=== PATIENT | male | born 1975 | race Caucasian/White ===

== ENCOUNTER 2017-03-18 09:42 | Inpatient (IN) | payer OTHER ==
[~2017-03-18] VITALS: Ht 177.8 cm; Wt 92.2 kg
--- NOTE | ~2017-03-18 | ST ---
[place], [place] EXERCISE STRESS TEST REPORT NAME: CADEN OLSEN UNIT #: [id number] ROOM: 419 DOCTOR: SENA HICKS MD BIRTHDATE: [birth year] DOS: REFERRING PHYSICIAN: Dr. Castillo. INDICATION: Chest pain. The patient underwent standard protocol Lexiscan stress EKG. The patient's baseline EKG showed normal sinus rhythm at a heart rate 61 with blood pressure 152/90. The patient's peak heart rate was 102 with a blood pressure 154/104. The patient had no chest pain, no ischemic changes noted to arrhythmias were noted. SUMMARY OF FINDINGS: Unremarkable Lexiscan stress EKG. Please see separate report for perfusion scan results. SENA HICKS MD CM:STRESS:EXERCISE STRESS TEST REPORT [id number] SENA HICKS MD
[~2017-03-18 09:42] MED LIST: AMLODIPINE BES1 TA1 PO; AUGMENTIN 875875 MG PO; CIPRO XR500 MG PO; DOK COLACE100 MG PO; DOXYCYCLINE100 M3 PO; DOXYCYCLINE100 MG PO; FLAGYL500 MG PO; NORCO 5-325 TA1 EACH PO; NORVASC5 MG PO; PRILOSEC20 M1 PO
[2017-03-18 09:43] VITALS: BP 122/90
--- NOTE | 2017-03-18 09:50 | NUR ---
324MG OF BABY ASA ADMINISTERED BY AMBULANCE CREW. JOSE GEORGE
[2017-03-18 10:16] LABS: BASO % 0.5 % (0.0-1.0); EOS # 0.4 10*3/uL (0.0-0.4); EOS % 5.4 % (1.0-4.0); HEMATOCRIT 44.5 % (42.0-52.0); HEMOGLOBIN 15.2 g/dl (14.0-18.0); LYMPH # 2.2 10*3/uL (1.3-4.4); LYMPH % 28.9 % (27.0-41.0); MEAN CELL VOLUME 94.1 fl (80.0-94.0); MEAN CORPUSCULAR HGB 32.1 pg (27.0-31.0); MEAN CORPUSCULAR HGB CONC 34.2 g/dl (33.0-37.0); MEAN PLATELET VOLUME 8.9 fl (9.6-12.3); MONO # 0.5 10*3/uL (0.1-1.0); MONO % 6.3 % (3.0-9.0); NEUT # 4.4 10*3/uL (2.3-7.9); NEUT % 58.6 % (47.0-73.0); PLATELET COUNT AUTOMATED 229 10*3/uL (130-400); RED BLOOD COUNT 4.73 10*6/uL (4.50-5.90); RED CELL DISTRI WIDTH 13.5 % (0-14.5); WHITE BLOOD COUNT 7.4 10*3/uL (4.8-10.8)
[2017-03-18 10:33] LABS: ALBUMIN 3.7 gm/dl (3.1-4.5); ALKALINE PHOSPHATASE 71 U/L (45-117); BUN 11 mg/dl (7-24); CHLORIDE 110 mmol/L (98-107); CREATININE 0.75 mg/dL (0.70-1.30); LIPASE 236 U/L (73-393); POTASSIUM 4.1 mmol/L (3.5-5.1); SGOT/AST 17 IU/L (3-35); SGPT/ALT 21 U/L (12-78); SODIUM 141 mmol/L (136-145); TOTAL PROTEIN 7.2 gm/dL (6.4-8.2)
[2017-03-18 10:35] LABS: INTERNATIONAL NORM RATIO 1.1 (2.0-3.5)
[2017-03-18 10:41] LABS: TROPONIN I 0.076 ng/ml (<0.045)
[2017-03-18 11:07] VITALS: BP 141/95
--- NOTE | 2017-03-18 11:15 | NUR ---
A 41, admitted to 4E, under the services of SHONDA Meade DO with a diagnosis of CHEST PAIN WITH HIGH RISK FACTOR FOR CARDIAC ETIOLOGY. Chief complaint is CHEST AND BACK PAIN. Patient arrived via stretcher from ER. Monitor applied. Initial assessment completed. Vital signs taken and recorded. SHONDA MEADE DO notified of admission to the unit. Orders received. See assessment for past medical history, medications and allergies. Patient and/or family oriented to unit. [address] visitation policy reviewed. [facility] Rec verified and completed with patient and Dr. Manrique was notified. Clothing/patient valuable form completed, patient requested that his wallet that contained $12.00 in humphrey, 2 bank cards and 1 credit card remain in his room with him. 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 ARIES ALONSO
[2017-03-18] MEDS ORDERED: OSTEO BI-FLEX1 EACH PO (11:46)
[2017-03-18] MEDS ORDERED: CENTRUM SPECIA1 EACH PO (11:47)
[2017-03-18] MEDS ORDERED: ZYRTEC10 MG PO (11:48)
--- NOTE | 2017-03-18 13:15 | NUR ---
DR. HICKS'S OFFICE NOTIFIED OF CARDIOLOGY CONSULT.
--- NOTE | 2017-03-18 13:33 | NUR ---
DR. HICKS NOTIFIED OF ELEVATED TROPONIN LEVEL. SEE NEW ORDERS
--- NOTE | 2017-03-18 15:03 | NUR ---
IV DILAUDID GIVEN FOR PATIENT'S C/O CHEST AND BACK PAIN RATED 9/10. PAIN MED TOOK EFFECT IMMEDIATELY AND PATIENT RATED PAIN 5/10. WILL CONTINUE TO MONITOR.
--- NOTE | 2017-03-18 15:30 | NUR ---
PATIENT STILL RATES PAIN 5/10 AFTER DILAUDID.
[2017-03-18 16:00] VITALS: BP 142/88
--- NOTE | 2017-03-18 16:27 | NUR ---
MEDICATED PO NORCO FOR C/O CHEST AND BACK PAIN.
--- NOTE | 2017-03-18 16:52 | NUR ---
DR. COLON NOTIFIED OF ELEVATED TROPONIN LEVEL. NO NEW ORDERS.
--- NOTE | 2017-03-18 17:15 | NUR ---
NORCO SOMEWHAT EFFECTIVE. PATIENT RATES PAIN 5/10 BUT IT INCREASES WHEN HE AMBULATES, TURNS, COUGHS, OR SNEEZES.
--- NOTE | 2017-03-18 17:52 | NUR ---
DILAUDID GIVEN FOR PATIENT C/O CHEST AND BACK PAIN RATED 8/10. WILL MONITOR.
[2017-03-18 18:22] LABS: BILIRUBIN NEGATIVE (NEGATIVE); BLOOD TRACE-INTACT (NEGATIVE); CLARITY CLEAR (CLEAR); COLOR YELLOW (YELLOW); GLUCOSE NEGATIVE (NEGATIVE); KETONE NEGATIVE (NEGATIVE); LEUKO ESTERASE NEGATIVE (NEGATIVE); NITRITE NEGATIVE (NEGATIVE); PH 5.5 (5.0-9.0); UROBILINOGEN 0.2 E.U./dl (0.2-1.0)
--- NOTE | 2017-03-18 18:25 | NUR ---
DR. COLON NOTIFIED OF ELEVATED TROPONIN LEVELS. NO NEW ORDERS.
[2017-03-18 18:29] LABS: WBC 0-2 wbc/hpf (0-5)
[2017-03-18 18:30] LABS: URINE AMPHETAMINES < 1000 (1000ng/ml); URINE BARBITURATES < 200 (200ng/ml); URINE BENZODIAZEPINES < 200 (200ng/ml); URINE CANNABINOIDS (THC) < 50 (50ng/ml); URINE COCAINE < 300 (300ng/ml); URINE METHADONE < 300 (300ng/ml); URINE OPIATES > 300 (300ng/ml)
--- NOTE | 2017-03-18 18:30 | NUR ---
DILAUDID EFFECTIVE. PATIENT ASLEEP WITH RESPIRATIONS >12.
[2017-03-18 18:33] LABS: URINE PHENCYCLIDINE < 25 (25ng/ml)
[2017-03-18 20:00] VITALS: BP 145/86
--- NOTE | 2017-03-18 20:55 | NUR ---
PATIENT MEDICATED WITH PRN NORCO FOR PAIN RATIED 8/10 ON A 0/10 PAIN SCALE
--- NOTE | 2017-03-18 22:07 | NUR ---
PATIENT MEDICATED WITH PRN DILAUDID FOR C/O PAIN RATED 7/10 ON A 0/10 PAIN SCALE. STATES NORCO ISNT EFFECTIVE
[2017-03-19] VITALS: BP 132/85
--- NOTE | 2017-03-19 01:23 | NUR ---
24 HR chart check completed.
--- NOTE | 2017-03-19 02:38 | NUR ---
MEDICATED WITH PRN DILAUDID FOR C/O PAIN. WILL MONITOR
--- NOTE | 2017-03-19 03:58 | NUR ---
PATIENT STATES MEDICATION NOT EFFECTIVE. REQUESTING NORCO. PATIENT IS NPO AND WAS INFORMED ABOUT DILAUDID BEING AVAILABLE AT 0630
--- NOTE | 2017-03-19 05:15 | NUR ---
CLINICALS FAXED TO [facility]. SHE CALLED YESTERDAY AFTERNOON AND STATED [facility] SENT HIM HERE. SHE WILL REVIEW CLINICALS AND GET BACK TO ME ABOUT [facility] GOING TO [facility].
--- NOTE | 2017-03-19 06:30 | NUR ---
PATIENT MEDICATED WITH PRN DILAUDID FOR C/O PAIN RATED 7/10 ON A 0/10 PAIN SCALE
[2017-03-19 06:43] LABS: BASO % 0.4 % (0.0-1.0); EOS # 0.6 10*3/uL (0.0-0.4); EOS % 6.1 % (1.0-4.0); HEMATOCRIT 42.8 % (42.0-52.0); HEMOGLOBIN 14.3 g/dl (14.0-18.0); LYMPH # 2.5 10*3/uL (1.3-4.4); LYMPH % 24.5 % (27.0-41.0); MEAN CORPUSCULAR HGB 32.1 pg (27.0-31.0); MEAN CORPUSCULAR HGB CONC 33.4 g/dl (33.0-37.0); MEAN PLATELET VOLUME 9.4 fl (9.6-12.3); MONO # 0.7 10*3/uL (0.1-1.0); MONO % 6.3 % (3.0-9.0); NEUT # 6.4 10*3/uL (2.3-7.9); NEUT % 62.4 % (47.0-73.0); PLATELET COUNT AUTOMATED 212 10*3/uL (130-400); RED BLOOD COUNT 4.46 10*6/uL (4.50-5.90); RED CELL DISTRI WIDTH 13.7 % (0-14.5); WHITE BLOOD COUNT 10.3 10*3/uL (4.8-10.8)
[2017-03-19 07:10] LABS: ALBUMIN 3.5 gm/dl (3.1-4.5); ALKALINE PHOSPHATASE 67 U/L (45-117); BUN 11 mg/dl (7-24); CHLORIDE 108 mmol/L (98-107); CHOLESTEROL 169 mg/dL (<200); CREATININE 0.68 mg/dL (0.70-1.30); FREE T4 0.91 ng/dl (0.76-1.46); HDL CHOLESTEROL 35 mg/dl (40-60); LDL CHOLESTEROL 98 mg/dL (9-159); PHOSPHOROUS 3.8 mg/dL (2.5-4.9); POTASSIUM 3.9 mmol/L (3.5-5.1); SGOT/AST 14 IU/L (3-35); SGPT/ALT 20 U/L (12-78); SODIUM 140 mmol/L (136-145); TOTAL PROTEIN 6.6 gm/dL (6.4-8.2); TRIGLYCERIDES 178 mg/dl (<150); VLDL CHOLESTEROL 36 mg/dL (6-40)
[2017-03-19 07:13] LABS: INTERNATIONAL NORM RATIO 1.1 (2.0-3.5)
[2017-03-19 07:18] LABS: VITAMIN D, 25-HYDROXY 36.8 ng/mL (30-100)
--- NOTE | 2017-03-19 07:45 | NUR ---
[address] via . Returned to room, remains NPO. Ervin MADRID
[2017-03-19 08:00] VITALS: BP 130/70
--- NOTE | 2017-03-19 08:00 | NUR ---
Safety Physician in to talk to patient. Patient states lives at HOME with AND FAMILY. There are [address] in the home. [facility] services: NONE Patient's level of ADLs: INDEPENDENT Patient has working utilities: YES DME: [facility] NOT USING RIGHT PROSTHESIS FOR R AKA Follow-up physician's appointment after d/c: WILL BE MADE PRIOR TO DC Does patient want to access PORTAL?: Discharge plan HOME. GLORIA RENNER
--- NOTE | 2017-03-19 09:24 | NUR ---
PRESTON=ADOL GIVEN PER ORDER X1 FOR C/O HEADACHE. WILL CONTINUE TO MONITOR.
--- NOTE | 2017-03-19 09:48 | NUR ---
MOST 1000 AM MEDICATIONS HELD. PT NPO FOR STRESS TEST.
--- NOTE | 2017-03-19 10:30 | NUR ---
TORADOL HELPING PER PT.
--- NOTE | 2017-03-19 10:36 | NUR ---
SPOKE WITH [facility] AT [facility] AWARE PT WILL HAVE TRESS TEST AND IF NEGATIVE WILL DC. ASKS THAT I CALL HER IF PT NOT DC.
--- NOTE | 2017-03-19 10:43 | NUR ---
OFF FLOOR FOR STRESS TEST.
--- NOTE | 2017-03-19 11:45 | NUR ---
INFORMED CONSENT OBTAINED FOR LEXISCAN NUCLEAR STRESS TEST WITH DR. HICKS. RESTING EKG NSR WITH A RESTING HR OF 61 WITH BP OF 152/90. LUNGS CLEAR WITH SPO2 OF 98% ON ROOM AIR. PT COMPLETED A 1:00 LEXISCAN PROTOCOL RECEIVING LEXISCAN 0.4 MG IV OVER 10 SECONDS. HAD C/O "CHEST HEAVINESS," NAUSEA AND LIGHTHEADEDNESS THAT RESOLVED IN RECOVERY. HAD NO EKG CHANGES. HAD A PEAK HR OF 102 WITH BP OF 154/104. LAST RECOVERY HR OF 85 WITH BP OF 150/98. AWAITING SCANNING IN STABLE CONDITION.
--- NOTE | 2017-03-19 13:30 | NUR ---
DILAUDID GIVEN FOR C/O CHEST/BACK PAIN. RATES 7/10 ON PAIN SCALE. WILL MONITOR.
--- NOTE | 2017-03-19 14:35 | NUR ---
DILAUDID EFFECTIVE PER PT.
[2017-03-19 16:00] VITALS: BP 148/81
[2017-03-19] MEDS ORDERED: CEPHALEXIN250 MG PO (16:22)
[2017-03-19] MEDS ORDERED: COLCHICINE0.6 M1 PO (16:22)
[2017-03-19] MEDS ORDERED: MOTRIN 600 MG E4 TAB PO (16:22)
--- NOTE | 2017-03-19 17:38 | NUR ---
CCDIS Discharge instructions reviewed with patient/family. Patient receptive and verbalizes understanding. Follow-up care arranged. Written instructions given to patient/family. RUPERT RIVERA
== END 2017-03-19 17:38 | disposition home or self-care (01) | DRG 391 ==
LOC: ED 09:42 → EDHOLD 10:27 → 4E 10:27
PROVIDERS: Emergency Medicine; Hospitalist; ADMIT Internal Medicine
PROC: 3E073KZ Introduction of Other Diagnostic Substance into Coronary Artery, Percutaneous Approach (ICD-10-PCS; principal; 2017-03-19)
PROC: 4A02XM4 Measurement of Cardiac Total Activity, External Approach (ICD-10-PCS; principal; 2017-03-19)
DX: K21.9 Gastro-esophageal reflux disease without esophagitis (principal); G03.8 Meningitis due to other specified causes; E87.8 Other disorders of electrolyte and fluid balance, not elsewhere classified; E83.41 Hypermagnesemia; L03.115 Cellulitis of right lower limb; F41.9 Anxiety disorder, unspecified; I10 Essential (primary) hypertension; R74.8 Abnormal levels of other serum enzymes; F17.210 Nicotine dependence, cigarettes, uncomplicated; Z89.611 Acquired absence of right leg above knee; Z71.6 Tobacco abuse counseling; Z79.899 Other long term (current) drug therapy; Z88.8 Allergy status to other drugs, medicaments and biological substances; Z72.89 Other problems related to lifestyle; Z82.49 Family history of ischemic heart disease and other diseases of the circulatory system; Z83.79 Family history of other diseases of the digestive system; Z86.14 Personal history of Methicillin resistant Staphylococcus aureus infection; Z87.19 Personal history of other diseases of the digestive system; Z79.82 Long term (current) use of aspirin

== ENCOUNTER 2017-07-04 08:40 | Emergency (ER) | payer OTHER ==
[~2017-07-04] VITALS: Wt 99.8 kg
[~2017-07-04 08:40] MED LIST changes: +CENTRUM SPECIA1 EACH PO; +CEPHALEXIN250 MG PO; +COLCHICINE0.6 M1 PO; +MOTRIN 600 MG E4 TAB PO; +OSTEO BI-FLEX1 EACH PO; +ZYRTEC10 MG PO
[2017-07-04] MEDS ORDERED: ZANTAC 150150 MG PO (08:53)
[2017-07-04 09:53] LABS: BASO % 0.5 % (0.0-1.0); EOS # 0.3 10*3/uL (0.0-0.4); HEMATOCRIT 43.6 % (42.0-52.0); HEMOGLOBIN 14.7 g/dl (14.0-18.0); LYMPH # 2.1 10*3/uL (1.3-4.4); LYMPH % 25.4 % (27.0-41.0); MEAN CELL VOLUME 93.4 fl (80.0-94.0); MEAN CORPUSCULAR HGB 31.5 pg (27.0-31.0); MEAN CORPUSCULAR HGB CONC 33.7 g/dl (33.0-37.0); MONO # 0.6 10*3/uL (0.1-1.0); NEUT # 5.2 10*3/uL (2.3-7.9); NEUT % 62.5 % (47.0-73.0); PLATELET COUNT AUTOMATED 225 10*3/uL (130-400); RED BLOOD COUNT 4.67 10*6/uL (4.50-5.90); RED CELL DISTRI WIDTH 13.2 % (0-14.5); WHITE BLOOD COUNT 8.2 10*3/uL (4.8-10.8)
[2017-07-04 10:08] LABS: INTERNATIONAL NORM RATIO 1.1 (2.0-3.5)
[2017-07-04 10:13] LABS: ALBUMIN 3.9 gm/dl (3.1-4.5); ALKALINE PHOSPHATASE 70 U/L (45-117); BUN 9 mg/dl (7-24); CHLORIDE 108 mmol/L (98-107); CREATININE 0.86 mg/dL (0.70-1.30); POTASSIUM 3.9 mmol/L (3.5-5.1); SGOT/AST 15 IU/L (3-35); SGPT/ALT 23 U/L (12-78); SODIUM 140 mmol/L (136-145); TOTAL PROTEIN 7.3 gm/dL (6.4-8.2)
[2017-07-04 10:17] LABS: TROPONIN I 0.078 ng/ml (<0.045)
== END 2017-07-04 11:46 | disposition home or self-care (01) ==
LOC: ED 08:40
PROVIDERS: Student in an Organized Health Care Education/Training Program
DX: K64.9 Unspecified hemorrhoids (principal); K21.9 Gastro-esophageal reflux disease without esophagitis; I10 Essential (primary) hypertension; F17.210 Nicotine dependence, cigarettes, uncomplicated; Z88.8 Allergy status to other drugs, medicaments and biological substances; Z88.6 Allergy status to analgesic agent; Z79.899 Other long term (current) drug therapy

== ENCOUNTER 2018-04-08 18:53 | Inpatient (IN) | payer OTHER ==
[~2018-04-08] VITALS: Ht 177.8 cm; Wt 104.0 kg
--- NOTE | ~2018-04-08 | EKG ---
[place], [place] ELECTROCARDIOGRAM REPORT NAME: CADEN OLSEN UNIT #: [id number] ROOM: 504 DOCTOR: SHIRA DRAFT REPORT BIRTHDATE: [birth year] [facility] Test Date: 2018-04-09 Test Time: 12:27:48 Pat Name: CADEN OLSEN Department: Room: [facility] 2 Gender: M Engine Lathe Set Up Operator Tool: Farzana Kline : 1975 Requested By: TRE KEENAN Order Number: [id number] Reading MD: Jordan Hebert MD Measurements Intervals [place] Rate: 67 P: 38 [place]: 161 QRS: 4 QRSD: 97 T: 4 QT: 421 QTc: 445 Interpretive Statements Sinus rhythm Abnormal R-wave progression, early transition Compared to previous tracing, no significant change Electronically Signed On 04-09-2018 18:16:53 PST by Jordan Hebert MD CM:EKGRPT:ELECTROCARDIOGRAM REPORT [id number] 1816 TRE SILVA DRAFT REPORT TRE KEENAN
--- NOTE | ~2018-04-08 | EKG ---
[place], [place] ELECTROCARDIOGRAM REPORT NAME: CADEN OLSEN UNIT #: [id number] ROOM: 504 DOCTOR: SHIRA DRAFT REPORT BIRTHDATE: [birth year] [facility] Test Date: 2018-04-08 Test Time: 20:30:57 Pat Name: CADEN OLSEN Department: ER Room: 504 Gender: M Hydraulic Barker Operator: EKG.VT : 1975 Requested By: KAUSHIK VENTURA PA-C Order Number: [id number] Reading MD: Jordan Hebert MD Measurements Intervals [place] Rate: 95 P: 7 AL: 149 QRS: 14 QRSD: 102 T: 25 QT: 362 QTc: 455 Interpretive Statements Sinus rhythm Minimal ST elevation, anterior leads Baseline wander in lead(s) V1,V2 Electronically Signed On 04-09-2018 18:06:44 PST by Jordan Hebert MD CM:EKGRPT:ELECTROCARDIOGRAM REPORT 29 05 KAUSHIK VENTURA PA-C EPIPHANY DRAFT REPORT KAUSHIK VENTURA PA-C
[~2018-04-08 18:53] MED LIST changes: +ZANTAC 150150 MG PO
[2018-04-08 18:56] VITALS: BP 140/81
[2018-04-08 19:47] LABS: BASO % 0.3 % (0.0-1.0); EOS # 0.5 10*3/uL (0.0-0.4); EOS % 3.6 % (1.0-4.0); HEMATOCRIT 44.1 % (42.0-52.0); HEMOGLOBIN 15.2 g/dl (14.0-18.0); LYMPH # 1.9 10*3/uL (1.3-4.4); LYMPH % 15.7 % (27.0-41.0); MEAN CELL VOLUME 93.8 fl (80.0-94.0); MEAN CORPUSCULAR HGB 32.3 pg (27.0-31.0); MEAN CORPUSCULAR HGB CONC 34.5 g/dl (33.0-37.0); MEAN PLATELET VOLUME 9.2 fl (9.6-12.3); MONO # 0.9 10*3/uL (0.1-1.0); MONO % 7.5 % (3.0-9.0); NEUT # 8.9 10*3/uL (2.3-7.9); NEUT % 72.3 % (47.0-73.0); PLATELET COUNT AUTOMATED 232 10*3/uL (130-400); RED CELL DISTRI WIDTH 13.7 % (0-14.5); WHITE BLOOD COUNT 12.4 10*3/uL (4.8-10.8)
[2018-04-08 19:56] LABS: INTERNATIONAL NORM RATIO 1.1 (2.0-3.5)
[2018-04-08 20:05] LABS: ALBUMIN 3.8 gm/dl (3.1-4.5); ALKALINE PHOSPHATASE 78 U/L (45-117); BUN 11 mg/dl (7-24); CHLORIDE 105 mmol/L (98-107); CREATININE 0.99 mg/dL (0.70-1.30); LIPASE 195 U/L (73-393); POTASSIUM 3.9 mmol/L (3.5-5.1); SGOT/AST 18 IU/L (3-35); SGPT/ALT 22 U/L (12-78); SODIUM 137 mmol/L (136-145); TOTAL PROTEIN 7.4 gm/dL (6.4-8.2)
[2018-04-08 20:13] LABS: TROPONIN I 0.068 ng/ml (<0.045)
[2018-04-08 20:32] LABS: BILIRUBIN NEGATIVE (NEGATIVE); BLOOD TRACE-INTACT (NEGATIVE); CLARITY SL CLOUDY (CLEAR); COLOR YELLOW (YELLOW); GLUCOSE NEGATIVE (NEGATIVE); KETONE NEGATIVE (NEGATIVE); LEUKO ESTERASE NEGATIVE (NEGATIVE); NITRITE NEGATIVE (NEGATIVE); PH 5.5 (5.0-9.0); SPECIFIC GRAVITY 1.025 (1.005-1.030); UROBILINOGEN 0.2 E.U./dl (0.2-1.0)
[2018-04-08 20:45] LABS: BACTERIA 1+; EPITHELIAL CELLS 0-2; MUCOUS TRACE; RBC 0-2 rbc/hpf (0-2)
[2018-04-09 00:52] VITALS: BP 114/76
[2018-04-09 03:00] VITALS: BP 130/78; BP 130/79
[2018-04-09 06:43] LABS: BASO % 0.4 % (0.0-1.0); EOS # 0.5 10*3/uL (0.0-0.4); EOS % 4.8 % (1.0-4.0); HEMATOCRIT 39.1 % (42.0-52.0); LYMPH # 2.2 10*3/uL (1.3-4.4); LYMPH % 22.1 % (27.0-41.0); MEAN CELL VOLUME 96.1 fl (80.0-94.0); MEAN CORPUSCULAR HGB 31.7 pg (27.0-31.0); MEAN PLATELET VOLUME 9.2 fl (9.6-12.3); MONO % 9.6 % (3.0-9.0); NEUT # 6.3 10*3/uL (2.3-7.9); NEUT % 62.5 % (47.0-73.0); PLATELET COUNT AUTOMATED 189 10*3/uL (130-400); RED BLOOD COUNT 4.07 10*6/uL (4.50-5.90); WHITE BLOOD COUNT 10.1 10*3/uL (4.8-10.8)
[2018-04-09 06:44] LABS: HEMOGLOBIN 12.9 g/dl (14.0-18.0)
[2018-04-09 07:10] LABS: ALBUMIN 3.3 gm/dl (3.1-4.5); BUN 7 mg/dl (7-24); CHLORIDE 107 mmol/L (98-107); SODIUM 140 mmol/L (136-145)
[2018-04-09 07:20] LABS: ALKALINE PHOSPHATASE 63 U/L (45-117); CHOLESTEROL 142 mg/dL (<200); CREATININE 0.85 mg/dL (0.70-1.30); HDL CHOLESTEROL 36 mg/dl (40-60); LDL CHOLESTEROL 83 mg/dL (9-159); PHOSPHOROUS 2.9 mg/dL (2.5-4.9); SGOT/AST 12 IU/L (3-35); SGPT/ALT 17 U/L (12-78); TOTAL PROTEIN 6.4 gm/dL (6.4-8.2); TRIGLYCERIDES 113 mg/dl (<150); VLDL CHOLESTEROL 23 mg/dL (6-40)
[2018-04-09 08:34] VITALS: BP 134/79
[2018-04-09 12:20] VITALS: BP 125/68
[2018-04-09 12:50] LABS: BUN 7 mg/dl (7-24); CHLORIDE 107 mmol/L (98-107); CREATININE 0.78 mg/dL (0.70-1.30); POTASSIUM 3.9 mmol/L (3.5-5.1); SODIUM 141 mmol/L (136-145)
[2018-04-09 12:57] LABS: TROPONIN I 0.051 ng/ml (<0.045)
[2018-04-09 16:00] VITALS: BP 140/81
[2018-04-09 20:00] VITALS: BP 129/86
[2018-04-10] VITALS: BP 112/86
[2018-04-10 07:00] LABS: BASO % 0.4 % (0.0-1.0); EOS # 0.5 10*3/uL (0.0-0.4); EOS % 6.3 % (1.0-4.0); HEMATOCRIT 40.4 % (42.0-52.0); HEMOGLOBIN 12.9 g/dl (14.0-18.0); LYMPH # 1.9 10*3/uL (1.3-4.4); LYMPH % 25.8 % (27.0-41.0); MEAN CELL VOLUME 98.1 fl (80.0-94.0); MEAN CORPUSCULAR HGB 31.3 pg (27.0-31.0); MEAN CORPUSCULAR HGB CONC 31.9 g/dl (33.0-37.0); MEAN PLATELET VOLUME 9.3 fl (9.6-12.3); MONO # 0.6 10*3/uL (0.1-1.0); MONO % 8.5 % (3.0-9.0); NEUT # 4.3 10*3/uL (2.3-7.9); NEUT % 58.6 % (47.0-73.0); PLATELET COUNT AUTOMATED 203 10*3/uL (130-400); RED BLOOD COUNT 4.12 10*6/uL (4.50-5.90); RED CELL DISTRI WIDTH 13.7 % (0-14.5); WHITE BLOOD COUNT 7.3 10*3/uL (4.8-10.8)
[2018-04-10 07:36] LABS: BUN 6 mg/dl (7-24); CHLORIDE 106 mmol/L (98-107); CREATININE 0.77 mg/dL (0.70-1.30); POTASSIUM 4.3 mmol/L (3.5-5.1); SODIUM 142 mmol/L (136-145)
[2018-04-10 08:00] VITALS: BP 120/80
[2018-04-10 12:00] VITALS: BP 136/82
[2018-04-10 16:00] VITALS: BP 146/87
[2018-04-10 20:00] VITALS: BP 149/80
[2018-04-11] VITALS: BP 142/83
[2018-04-11 06:41] LABS: BASO % 0.5 % (0.0-1.0); EOS # 0.5 10*3/uL (0.0-0.4); EOS % 6.6 % (1.0-4.0); HEMATOCRIT 41.8 % (42.0-52.0); LYMPH # 1.4 10*3/uL (1.3-4.4); MEAN CORPUSCULAR HGB 31.7 pg (27.0-31.0); MEAN CORPUSCULAR HGB CONC 33.5 g/dl (33.0-37.0); MEAN PLATELET VOLUME 9.1 fl (9.6-12.3); MONO # 0.7 10*3/uL (0.1-1.0); MONO % 8.9 % (3.0-9.0); NEUT % 65.5 % (47.0-73.0); PLATELET COUNT AUTOMATED 228 10*3/uL (130-400); RED BLOOD COUNT 4.41 10*6/uL (4.50-5.90); RED CELL DISTRI WIDTH 13.4 % (0-14.5); WHITE BLOOD COUNT 7.7 10*3/uL (4.8-10.8)
[2018-04-11 06:44] LABS: MEAN CELL VOLUME 94.8 fl (80.0-94.0)
[2018-04-11 08:00] VITALS: BP 139/85
[2018-04-11] MEDS ORDERED: NORCO 5-325 TA1 EACH PO (08:11)
[2018-04-11] MEDS ORDERED: FLAGYL500 MG PO (08:11)
[2018-04-11] MEDS ORDERED: CIPRO250 MG PO (08:11)
== END 2018-04-11 10:45 | disposition home or self-care (01) | DRG 872 ==
LOC: ED 18:53 → 5E 04-09 01:23 → EDHOLD 04-09 01:23 → 5E 04-09 01:50
PROVIDERS: Internal Medicine; Physician Assistant; Student in an Organized Health Care Education/Training Program
DX: A41.9 Sepsis, unspecified organism (principal); K57.32 Diverticulitis of large intestine without perforation or abscess without bleeding; R65.20 Severe sepsis without septic shock; K80.20 Calculus of gallbladder without cholecystitis without obstruction; K40.90 Unilateral inguinal hernia, without obstruction or gangrene, not specified as recurrent; E66.09 Other obesity due to excess calories; F17.210 Nicotine dependence, cigarettes, uncomplicated; R73.9 Hyperglycemia, unspecified; K42.9 Umbilical hernia without obstruction or gangrene; E78.5 Hyperlipidemia, unspecified; K21.9 Gastro-esophageal reflux disease without esophagitis; I10 Essential (primary) hypertension; Z88.8 Allergy status to other drugs, medicaments and biological substances; Z89.511 Acquired absence of right leg below knee; Z86.14 Personal history of Methicillin resistant Staphylococcus aureus infection; Z82.49 Family history of ischemic heart disease and other diseases of the circulatory system; Z83.3 Family history of diabetes mellitus; Z83.79 Family history of other diseases of the digestive system; Z79.899 Other long term (current) drug therapy; Z71.6 Tobacco abuse counseling; Z68.32 Body mass index [BMI] 32.0-32.9, adult

== ENCOUNTER 2018-11-07 11:48 | Inpatient (IN) | payer OTHER ==
[2018-11-07] VITALS (9 sets, daily range): BP systolic 114–145; BP diastolic 57–97
[~2018-11-07] VITALS: Ht 177.8 cm; Wt 95.9 kg
--- NOTE | ~2018-11-07 | EKG ---
[place], [place] ELECTROCARDIOGRAM REPORT NAME: CADEN OLSEN UNIT #: [id number] ROOM: 415 DOCTOR: SHIRA DRAFT REPORT BIRTHDATE: [birth year] [facility] Test Date: 2018-11-07 Test Time: 17:21:52 Pat Name: CADEN OLSEN Department: Room: 415 Gender: M Credit Card Analyst: Sandra Abreu : 1975 Requested By: CATE CAMPUZANO Order Number: [id number] Reading MD: Carey Milian MD Measurements Intervals [place] Rate: 66 P: [place]: QRS: 6 QRSD: 97 T: 13 QT: 424 QTc: 445 Interpretive Statements Sinus rhythm Electronically Signed On 11-09-2018 11:40:18 PDT by Carey Milian MD CM:EKGRPT:ELECTROCARDIOGRAM REPORT 1721 1140 CATE SILVA DRAFT REPORT CATE CAMPUZANO MD
--- NOTE | ~2018-11-07 | EKG ---
[place], [place] ELECTROCARDIOGRAM REPORT NAME: CADEN OLSEN UNIT #: [id number] ROOM: 415 DOCTOR: SHIRA DRAFT REPORT BIRTHDATE: [birth year] [facility] Test Date: 2018-11-07 Test Time: 14:14:52 Pat Name: CADEN OLSEN Department: Room: 415 Gender: M Software Implementation Project Manager: Sandra Abreu : 1975 Requested By: CATE CAMPUZANO Order Number: [id number] Reading MD: Carey Milian MD Measurements Intervals [place] Rate: 71 P: 47 DC: 162 QRS: -6 QRSD: 91 T: -2 QT: 418 QTc: 455 Interpretive Statements Sinus rhythm Abnormal R-wave progression, early transition Left ventricular hypertrophy Nonspecific T abnormalities, inferior leads Artifact in lead(s) II,III,aVR,aVL,aVF,V1,V2 Compared to ECG 04/09/2018 12:27:48 Left ventricular hypertrophy now present T-wave abnormality now present Electronically Signed On 11-09-2018 11:39:43 PDT by Carey Milian MD CM:EKGRPT:ELECTROCARDIOGRAM REPORT [id number] 1139 CATE SILVA DRAFT REPORT CATE CAMPUZANO MD
--- NOTE | ~2018-11-07 | EKG ---
[place], [place] ELECTROCARDIOGRAM REPORT NAME: CADEN OLSEN UNIT #: [id number] ROOM: 415 DOCTOR: SHIRA DRAFT REPORT BIRTHDATE: [birth year] [facility] Test Date: 2018-11-07 Test Time: 11:54:52 Pat Name: CADEN OLSEN Department: Room: 415 Gender: M Replanting Machine Crewman: Sandra Abreu : 1975 Requested By: CATE CAMPUZANO Order Number: [id number] Reading MD: Carey Milian MD Measurements Intervals [place] Rate: 81 P: 4 [place]: 153 QRS: 6 QRSD: 93 T: 12 QT: 384 QTc: 446 Interpretive Statements Sinus rhythm Abnormal R-wave progression, early transition Borderline T abnormalities, inferior leads Artifact in lead(s) II,III,aVR,aVL,aVF Compared to ECG 04/09/2018 12:27:48 T-wave abnormality now present Electronically Signed On 11-09-2018 11:39:34 PDT by Carey Milian MD CM:EKGRPT:ELECTROCARDIOGRAM REPORT 1154 1139 CATE SILVA DRAFT REPORT CATE CAMPUZANO MD
[~2018-11-07 11:48] MED LIST changes: +CIPRO250 MG PO
[2018-11-07 12:13] LABS: BASO % 0.4 % (0.0-1.0); EOS # 0.4 10*3/uL (0.0-0.4); EOS % 4.2 % (1.0-4.0); HEMATOCRIT 45.6 % (42.0-52.0); HEMOGLOBIN 15.6 g/dl (14.0-18.0); LYMPH # 2.3 10*3/uL (1.3-4.4); LYMPH % 27.4 % (27.0-41.0); MEAN CELL VOLUME 95.8 fl (80.0-94.0); MEAN CORPUSCULAR HGB 32.8 pg (27.0-31.0); MEAN CORPUSCULAR HGB CONC 34.2 g/dl (33.0-37.0); MEAN PLATELET VOLUME 9.1 fl (9.6-12.3); MONO # 0.6 10*3/uL (0.1-1.0); MONO % 7.7 % (3.0-9.0); NEUT % 59.9 % (47.0-73.0); PLATELET COUNT AUTOMATED 238 10*3/uL (130-400); RED BLOOD COUNT 4.76 10*6/uL (4.50-5.90); RED CELL DISTRI WIDTH 13.2 % (0-14.5); WHITE BLOOD COUNT 8.4 10*3/uL (4.8-10.8)
[2018-11-07 12:26] LABS: ACT PARTIAL THROMBO TIME 27.3 SECONDS (20.0-32.1)
[2018-11-07 12:29] LABS: ALBUMIN 4.3 gm/dl (3.1-4.5); ALKALINE PHOSPHATASE 78 U/L (45-117); BUN 13 mg/dl (7-24); CHLORIDE 108 mmol/L (98-107); CREATININE 0.96 mg/dL (0.70-1.30); POTASSIUM 3.9 mmol/L (3.5-5.1); SGOT/AST 19 IU/L (3-35); SGPT/ALT 26 U/L (12-78); SODIUM 139 mmol/L (136-145); TOTAL PROTEIN 7.8 gm/dL (6.4-8.2)
--- NOTE | 2018-11-07 16:45 | NUR ---
A 43yr old male, admitted to ICCU, under the services of KASSANDRA Faulkner DO with a diagnosis of CHEST PAIN WITH MODERATE RISK FOR CARDIAC ETIOLOGY. Chief complaint is midsternal chest pain since Saturday. Had a stress test and echo at [facility] and discharged, pain worsened today and reports radiation to his neck. Patient arrived via stretcher from ER. Monitor applied. Initial assessment completed. Vital signs taken and recorded. See assessment for past medical history, medications and allergies. Patient and/or family oriented to unit. [facility] ICCU visitation policy reviewed. Clothing/patient valuable form completed. QUINTIN NICOLE L
[2018-11-07] MEDS ORDERED: DOXYCYCLINE100 MG PO (17:08)
[2018-11-07] MEDS ORDERED: IBU400 M1 PO (17:09)
--- NOTE | 2018-11-07 17:27 | NUR ---
MEDICATED WITH MORPHINE FOR PAIN ".
--- NOTE | 2018-11-07 18:20 | NUR ---
PAIN LEVEL A "5"/10 NOW. ENJOYING HIS DINNER. NO DYSRHYTHMIAS.
--- NOTE | 2018-11-07 18:25 | NUR ---
PT ABLE TO GIVE DOSES AND NAMES OF HIS MEDS.
--- NOTE | 2018-11-07 18:37 | NUR ---
DR VIVAR NOTIFIED OF TROPONIN OF 0.076 WHICH IS LOWER THAN THE LAST. DR VIVAR SAID HE SPOKE WITH DR HICKS EARLIER.
--- NOTE | 2018-11-07 18:50 | NUR ---
PT'S CALL LIGHT ON. "MY CHEST HURTS SINCE I ATE AND MY FAMILY HAS BEEN CALLING". NORCO BY MOUTH. "NOW CAN I HAVE THE MORPHINE EVERY 4 HOURS AND THE NORCO EVERY 4 HOURS?" "I'LL WANT THE MORPHINE CLOSER TO BEDTIME".
--- NOTE | 2018-11-07 20:00 | NUR ---
PT RESTING IN BED AWAKE, A&O, PLEASANT AND COOPERATIVE. RESP NONLABORED. NO ACUTE DISTRESS NOTED. PT STATES HE HAS A HEADACHE/NECK PAIN. PT STATES HE WOULD LIKE SOMETHING FOR PAIN, INFORMED PT THAT TO SOON FOR NORCO OR MORHINE BUT TYLENOL WAS AVAILABLE. PT STATES TYLENOL DOESN'T WORK FOR HIM SO HE'LL WAIT FOR THE NORCO OR MORPHINE. PT ALSO STATES THAT THE NORCO ISN'T WORKING FOR HIM LIKE IT NORMALLY DOES BECAUSE HE STILL HAS SOME SLIGHT CHEST DISCOMFORT.
--- NOTE | 2018-11-07 21:20 | NUR ---
MEDICATED WITH MORPHINE PER PRN ORDER FOR C/O PAIN.
--- NOTE | 2018-11-07 23:10 | NUR ---
MEDICATED WITH NORCO PER PRN ORDER FOR C/O PAIN.
[2018-11-08] VITALS (7 sets, daily range): BP systolic 119–135; BP diastolic 67–88
--- NOTE | 2018-11-08 01:30 | NUR ---
PT CALLED AND REQUESTING MORPHINE FOR C/O CHEST PAIN. PT STATES "I JSUT WANT TO STAY ASLEEP. I WAS HAVING SUCH A PLEASANT DREAM." ASKED PT ABOUT HIS CHEST PAIN AND HE SAID THAT IT'S PRESSURE AND FEELS LIKE AN ELEPHANT SITTING ON HIS CHEST. INFORMED PT THAT RECONCILIATION ANALYST MAY NEED TO BE CALLED AND THAT PT MAY NEED TO BE PLACED ON A NITRO GTT. PT STATES THAT THE CHEST PAIN IS MORE CONTAINTED AND IT'S THE HEADACHE AND PAIN IN THE BACK OF HIS NECK THAT IS MORE THE PROBLEM. MEDICATED WITH MORPHINE PER PT REQUEST. NO ACUTE DISTRESS OR DISCOMFORT NOTED. RESP NONLABORED. VSS.
--- NOTE | 2018-11-08 04:00 | NUR ---
MMORPHINE AND NORCO HAS BEEN EFFECTIVE FOR PAIN.
--- NOTE | 2018-11-08 05:30 | NUR ---
MEDICATED WITH MORPHINE PER PRN ORDER FOR C/O PAIN.
[2018-11-08 06:16] LABS: BASO # 0.1 10*3/uL (0.0-0.1); BASO % 0.8 % (0.0-1.0); EOS # 0.7 10*3/uL (0.0-0.4); EOS % 8.5 % (1.0-4.0); HEMATOCRIT 44.7 % (42.0-52.0); HEMOGLOBIN 14.8 g/dl (14.0-18.0); LYMPH # 3.8 10*3/uL (1.3-4.4); LYMPH % 43.7 % (27.0-41.0); MEAN CORPUSCULAR HGB 32.5 pg (27.0-31.0); MEAN CORPUSCULAR HGB CONC 33.1 g/dl (33.0-37.0); MEAN PLATELET VOLUME 9.4 fl (9.6-12.3); MONO # 0.6 10*3/uL (0.1-1.0); MONO % 7.2 % (3.0-9.0); NEUT # 3.5 10*3/uL (2.3-7.9); NEUT % 39.5 % (47.0-73.0); PLATELET COUNT AUTOMATED 221 10*3/uL (130-400); RED BLOOD COUNT 4.56 10*6/uL (4.50-5.90); RED CELL DISTRI WIDTH 13.2 % (0-14.5); WHITE BLOOD COUNT 8.8 10*3/uL (4.8-10.8)
[2018-11-08 06:47] LABS: BUN 16 mg/dl (7-24); CHLORIDE 107 mmol/L (98-107); CHOLESTEROL 176 mg/dL (<200); CREATININE 0.84 mg/dL (0.70-1.30); SODIUM 141 mmol/L (136-145); TRIGLYCERIDES 353 mg/dl (<150); VLDL CHOLESTEROL 71 mg/dL (6-40)
[2018-11-08 06:56] LABS: HDL CHOLESTEROL 28 mg/dl (40-60); LDL CHOLESTEROL 77 mg/dL (9-159)
--- NOTE | 2018-11-08 08:26 | NUR ---
ON ASSESSMENT PATIENT ALERT ORIENTED, ASKED FOR A "NORCO". WHEN QUESTIONED FURTHER,IT'S NOT CHEST PAIN, IT'S MY NECK "8"/10. ROOM AIR. ENJOYING HIS BREAKFAST. DR MARS HAS VISITED. PT HAS SIGNED RELEASE OF INFORMATION TO GET RECORDS FROM [facility] THAT WERE DONE EARLIER THIS WEEK. SEE ALL APPROPRIATE INTERVENTIONS.
--- NOTE | 2018-11-08 09:01 | NUR ---
PT WAS HEARD TALKING WITH RESIDENT SAYING "MY MORPHINE IS DUE AT 0930".
--- NOTE | 2018-11-08 09:27 | NUR ---
PT HAS CALLED ME TO THE ROOM."I'M READY FOR MY PAIN SHOT". ON QUESTIONING THE PAIN IS A "7"/10 IN HIS "HEAD".
--- NOTE | 2018-11-08 10:01 | NUR ---
MORPHINE WAS GIVEN AT 09 AND PT IS RESTING WATCHING TV, CLAIMS PAIN NOW A "4"/10
--- NOTE | 2018-11-08 10:45 | NUR ---
PT WAS UP TO BSC FOR SMALL FORMED BM. "MY HEAD IS POUNDING. I'LL BE READY FOR MY NORCO AT 11:30".
--- NOTE | 2018-11-08 11:29 | NUR ---
MEDICATED WITH NORCO FOR HEAD PAIN "ABOUT AN 8"10. "MY EYES ARE HURTING TOO. I'M NOT MAKING THIS STUFF UP, ARE MY EYES BLOODSHOT?"
--- NOTE | 2018-11-08 13:06 | NUR ---
DR TRAVIS MARS NOTIFIED THAT PT IS COMPLAINING OF PAIN "IN MY HEAD WITH PRESSURE BEHIND MY EYES", AND THAT HE IS ASKING IF HIS DOSE COULD BE INCREASED. EXPLAINED TO DR MARS THAT IT'S 30 MINUTES BEFORE PT'S Q4H PRN DOSE IS AVAILABLE. OKAY TO GIVE IT NOW. ICE BAG APPLIED TO PT'S NECK.
--- NOTE | 2018-11-08 13:12 | NUR ---
MORPHINE 2MG IV FOR C/O HEAD/NECK PAIN. DOOR CLOSED, LIGHTS DIMMED.
--- NOTE | 2018-11-08 13:45 | NUR ---
PT IS LYING QUIETLY IN BED WITH HIS EYES CLOSED AND HIS FACE RELAXED. HE'S TAKEN THE ICE BAG OFF OF HIS NECK. I DID NOT AWAKEN HIM TO ASK HIM HIS CURRENT PAIN LEVEL.
--- NOTE | 2018-11-08 15:51 | NUR ---
ALYSE FOR CONTINUED C/O PAIN IN HIS NECK. ICE BAG REFILLED. HE'S ORDERED HIS DINNER. DR HICKS HERE.
--- NOTE | 2018-11-08 16:27 | NUR ---
PT EATING HIS DINNER. NO DYSRHYTHMIAS. DR HICKS PLANS TO DO HEART CATH SATURDAY.
--- NOTE | 2018-11-08 16:56 | NUR ---
DR Kenyon MARS NOTIFIED THAT WHEN DR HICKS WAS HERE HE SAID THAT PT COULD BE MADE [facility] PATIENT. ORDER RECEIVED.
--- NOTE | 2018-11-08 16:57 | NUR ---
ALEXIS LENTZ NOTIFIED THAT PT NOW [facility] PT.
--- NOTE | 2018-11-08 17:18 | NUR ---
PT HAD HIS CALL LIGHT ON FOR ME TO EMPTY HIS BSC. HE SAID "I'M READY FOR MY SHOT OF MORPHINE. DID THEY INCREASE THE DOSE OR CHANGE IT TO DILAUDID?". NO CHANGE IN MED ORDERS HAVE BEEN RECEIVED. MORPHINE 2MG IV GIVEN FOR NECK/BACK PAIN "".
--- NOTE | 2018-11-08 18:04 | NUR ---
RESTING SINCE EARLIER MORPHINE.
--- NOTE | 2018-11-08 19:30 | NUR ---
MEDICATED WITH NORCO PER PT REQUEST FOR C/O HEAD/NECK PAIN.
--- NOTE | 2018-11-08 21:10 | NUR ---
PT TRANSFERRED TO ROOM 415 BED 2 FROM ICU. VITALS STABLE. PT ASSESSED. COMPLAINING OF BACK AND CHEST PAIN AT THIS TIME. WILL CONTINUE TO MONITOR.
--- NOTE | 2018-11-08 21:19 | NUR ---
PT COMPLAINING OF PAIN IN THE BACK OF HIS NECK AND IN HIS CHEST. ADMINISTERED PRN MORPHINE. WILL CONTINUE TO MONITOR THE PT AND REASSESS IN A HALF HOUR.
--- NOTE | 2018-11-08 21:45 | NUR ---
PT STILL COMPLAINING OF CHEST AND NECK PAIN. PTS VITALS STABLE. NO DIAPHORESIS NOTED. PT DENIES N/V. NOT DUE FOR NORCO FOR AN HOUR. PT AWARE. WILL CONTINUE TO MONITOR.
[2018-11-09] VITALS: BP 119/83
--- NOTE | 2018-11-09 02:09 | NUR ---
PATIENT MEDICATED WITH PRN MORPHINE ORDERED FOR C/O CHEST PAIN AND HEADACHE
[2018-11-09 06:11] LABS: BASO % 0.6 % (0.0-1.0); EOS # 0.6 10*3/uL (0.0-0.4); EOS % 8.8 % (1.0-4.0); HEMATOCRIT 45.3 % (42.0-52.0); HEMOGLOBIN 15.2 g/dl (14.0-18.0); LYMPH # 2.7 10*3/uL (1.3-4.4); LYMPH % 42.8 % (27.0-41.0); MEAN CORPUSCULAR HGB 32.5 pg (27.0-31.0); MEAN CORPUSCULAR HGB CONC 33.6 g/dl (33.0-37.0); MEAN PLATELET VOLUME 9.6 fl (9.6-12.3); MONO # 0.5 10*3/uL (0.1-1.0); MONO % 7.7 % (3.0-9.0); NEUT # 2.5 10*3/uL (2.3-7.9); NEUT % 39.8 % (47.0-73.0); PLATELET COUNT AUTOMATED 224 10*3/uL (130-400); RED BLOOD COUNT 4.67 10*6/uL (4.50-5.90); WHITE BLOOD COUNT 6.4 10*3/uL (4.8-10.8)
[2018-11-09 06:35] LABS: ALBUMIN 3.7 gm/dl (3.1-4.5); ALKALINE PHOSPHATASE 73 U/L (45-117); BUN 13 mg/dl (7-24); CHLORIDE 108 mmol/L (98-107); CREATININE 0.71 mg/dL (0.70-1.30); PHOSPHOROUS 3.5 mg/dL (2.5-4.9); POTASSIUM 4.1 mmol/L (3.5-5.1); SGOT/AST 21 IU/L (3-35); SGPT/ALT 26 U/L (12-78); SODIUM 140 mmol/L (136-145); TOTAL PROTEIN 6.8 gm/dL (6.4-8.2)
--- NOTE | 2018-11-09 08:30 | NUR ---
NORCO GIVEN FOR CP RATED 6/10. CALL LIGHT IN REACH. WILL MONITOR FOR EFFECTIVENESS.
--- NOTE | 2018-11-09 08:35 | NUR ---
PT C/O PERSISTENT CURIEL TO NECK AREA. STATES HE HAS NEVER HAD THIS TYPE OF CURIEL BEFORE. OFFERED TYLENOL, PT DECLINED.
--- NOTE | 2018-11-09 09:30 | NUR ---
PER PT, NORCO WAS "SOMEWHAT" EFFECTIVE. PT STATES THE PAIN NEVER GOES AWAY. PAIN RATED 4/10. WILL MONITOR. ALSO STATES TO BRING DILAUDID SOON HE CAN HAVE IT. SEE MAR.
--- NOTE | 2018-11-09 10:26 | NUR ---
ZOFRAN GIVEN FOR NAUSEA. PT STATES IT COMES AND GOES. WILL MONITOR. DOWN FOR CT AT THIS TIME.
--- NOTE | 2018-11-09 10:41 | NUR ---
BACK TO ROOM FOLLOWING CT.
--- NOTE | 2018-11-09 10:53 | NUR ---
DILAUDAD GIVEN FOR CHEST PAIN/NECK PAIN 10/13 AND 'ANNOYING". CALL LIGHT IN REACH WILL MONITOR. ZOFRAN WAS EFFECTIVE FOR EARLIER COMPLAINTS.
--- NOTE | 2018-11-09 11:25 | NUR ---
PT SLEEPING, NO SXS OF DISTRESS NOTED. CALL LIGHT IN REACH. DILAUDID SEEMS TO BE EFFECTIVE FOR COMPLAINTS.
[2018-11-09 12:00] VITALS: BP 142/78
--- NOTE | 2018-11-09 12:58 | NUR ---
PRN NORCO GIVEN FOR CHEST/NECK PAIN RATED 7/10. CALL LIGHT IN REACH. WILL MONITOR FOR EFFECTIVENESS.
--- NOTE | 2018-11-09 13:43 | NUR ---
PER PT, NORCO WAS NOT EFFECTIVE. PAIN RATED 5/10. CALL LIGHT IN REACH. STATES HE CAN "WAIT FOR THE DILAUDID WHENEVER IT IS DUE."
--- NOTE | 2018-11-09 14:57 | NUR ---
DILAUDID GIVEN FOR CHEST/NECK PAIN RATED 6/10. CALL LIGHT IN REACH. WILL MONITOR FOR EFFECTIVENESS.
--- NOTE | 2018-11-09 15:34 | NUR ---
PER , PT WILL BE TRANSFERRED IN THE AM FOR A HEART CATH AT [facility]
--- NOTE | 2018-11-09 15:42 | NUR ---
PER PT, DILAUDID WAS EFFECTIVE FOR PAIN, PAIN RATED 2/10. CALL LIGHT IN REACH. WILL CONTINUE TO MONITOR.
[2018-11-09 16:00] VITALS: BP 135/70
--- NOTE | 2018-11-09 16:49 | NUR ---
ON PHONE, IN NO OBVIOUS PAIN OR DISTRESS BUT REQUESTING NORCO FOR CHEST PAIN/NECK RATED 7/10. CALL LIGHT IN REACH. WILL MONTIOR FOR EFFECTIVENESS.
--- NOTE | 2018-11-09 17:49 | NUR ---
NOTIFIED THAT TRANSPORTATION FOR HEART CATH IN AM HAS BEEN DIFFICULT TO SET UP. ALL AMBULANCE'S THAT HAVE BEEN CALLED HAVE SAID THEY CANNOT TRANSPORT THE PT IN THE AM. SAID TO NOTIFY OF SITUATION. [facility] CALLED, MSG LEFT FOR . AWAITING CALL BACK.
--- NOTE | 2018-11-09 18:02 | NUR ---
[facility] WILL SEND THEIR MOBILE ICU TO GET THE PT FOR TOMORROW'S PROCEDURE. DR.ALEX MARS NOTIFIED. SAID HE WOULD PASS IT ON TO THE NIGHT TEAM.
--- NOTE | 2018-11-09 18:30 | NUR ---
CALLED BACK, INFORMED THAT THERE WAS A PROBLEM OBTAINING TRANSPORT FOR AM CATH AND THAT IT HAS BEEN RESOLVED. TRANSPORTATION SETUP AND WILL BE HERE FOR THE PT ARND [id number].
[2018-11-09 20:00] VITALS: BP 147/86
--- NOTE | 2018-11-09 20:18 | NUR ---
1950 RESTING IN BED WATCHING TV. HEP LOCK INTACT. NO DISTRSS NOTED.
--- NOTE | 2018-11-09 21:16 | NUR ---
2100 NORCO 1 PO GIVEN FOR C/O'S CONT CHEST PAIN. WILL MONITOR.
--- NOTE | 2018-11-09 22:05 | NUR ---
PER PT, NORCO WAS ONLY SL EFFECTIVE. AWAITING DILAUDID, WHICH PT WANTS AT 2300. CONDITION GUARDED.
--- NOTE | 2018-11-09 23:00 | NUR ---
DILAUDID 0.5MG IV GIVEN FOR CONT C/O'S MIDSTERNAL CHEST PAIN, RATES PAIN A "7". WILL CONT TO MONITOR.
[2018-11-10] VITALS: BP 146/78
[2018-11-10] MEDS ORDERED: ASPIRIN ADULT L81 M2 PO (00:21)
[2018-11-10] MEDS ORDERED: ATORVASTATIN CA80 M1 PO (00:21)
[2018-11-10] MEDS ORDERED: METOPROLOL SUCC25 M2 PO (00:21)
--- NOTE | 2018-11-10 01:29 | NUR ---
PT MEDICATED WITH PRN ORDER FOR IV ZOFRAN FOR COMPLAINTS OF NAUSEA AND HEART BURN. WILL MONITOR FOR EFEFCTIVENESS OF MEDICATION.
--- NOTE | 2018-11-10 03:47 | NUR ---
PT RESTING IN BED AT THIS TIME WITH NO OBVIOUS S/S OF PAIN OR DISCOMFORT. REPSIRATIONS EASY AND NONLABORED. BED LOCKED AND IN THE LOWEST POSITION, CALL LIGHT WITHIN REACH. WILL CONTINUE TO MONITOR PT.
--- NOTE | 2018-11-10 04:19 | NUR ---
0.5 IV DILAUDED ADMINISTERED ORDERED FOR COMPLAINTS OF CHEST PAIN HE RATES A 5/10. WILL MONITOR FOR EFFECTIVENESS OF MEDICATION.
--- NOTE | 2018-11-10 06:27 | NUR ---
REPORT CALLED TO [facility] COMMERCIAL BAKING TEACHER RN. SHE IS REQUESTING TO BE FAXED THE CONSULT FROM DR. HICKS.
[2018-11-10 06:46] LABS: BASO % 0.4 % (0.0-1.0); EOS # 0.6 10*3/uL (0.0-0.4); EOS % 8.5 % (1.0-4.0); HEMATOCRIT 46.4 % (42.0-52.0); HEMOGLOBIN 15.2 g/dl (14.0-18.0); LYMPH # 2.4 10*3/uL (1.3-4.4); LYMPH % 34.6 % (27.0-41.0); MEAN CELL VOLUME 97.1 fl (80.0-94.0); MEAN CORPUSCULAR HGB 31.8 pg (27.0-31.0); MEAN CORPUSCULAR HGB CONC 32.8 g/dl (33.0-37.0); MEAN PLATELET VOLUME 9.3 fl (9.6-12.3); MONO # 0.6 10*3/uL (0.1-1.0); MONO % 8.8 % (3.0-9.0); NEUT # 3.3 10*3/uL (2.3-7.9); NEUT % 47.4 % (47.0-73.0); PLATELET COUNT AUTOMATED 214 10*3/uL (130-400); RED BLOOD COUNT 4.78 10*6/uL (4.50-5.90); RED CELL DISTRI WIDTH 12.9 % (0-14.5); WHITE BLOOD COUNT 6.9 10*3/uL (4.8-10.8)
[2018-11-10 06:56] LABS: ALBUMIN 3.8 gm/dl (3.1-4.5); ALKALINE PHOSPHATASE 70 U/L (45-117); BUN 10 mg/dl (7-24); CHLORIDE 108 mmol/L (98-107); CREATININE 0.74 mg/dL (0.70-1.30); PHOSPHOROUS 3.9 mg/dL (2.5-4.9); POTASSIUM 4.2 mmol/L (3.5-5.1); SGOT/AST 37 IU/L (3-35); SGPT/ALT 39 U/L (12-78); SODIUM 140 mmol/L (136-145)
--- NOTE | 2018-11-10 08:08 | NUR ---
PATIENT DISCHARGED TO GO TO [facility] BY THEIR MOBILE UNIT.
--- NOTE | 2018-11-10 14:28 | NUR ---
case norrissilvia called [facility] regarding patient being admitted on 11/07 and was transferred this am, spoke to Kaylen, patient's information given to Kaylen
== END 2018-11-10 08:08 | disposition other institution (70) | DRG 282 ==
LOC: ED 11:48 → EDHOLD 15:47 → 4E 15:47 → 5E 15:56 → ICCU 16:46 → 4E 11-08 21:02
PROVIDERS: Emergency Medicine; Hospitalist; Internal Medicine; ADMIT Family Medicine
DX: I21.4 Non-ST elevation (NSTEMI) myocardial infarction (principal); D53.1 Other megaloblastic anemias, not elsewhere classified; E78.5 Hyperlipidemia, unspecified; B36.0 Pityriasis versicolor; R51 Headache; R55 Syncope and collapse; K57.90 Diverticulosis of intestine, part unspecified, without perforation or abscess without bleeding; M54.2 Cervicalgia; K21.9 Gastro-esophageal reflux disease without esophagitis; E66.9 Obesity, unspecified; I11.9 Hypertensive heart disease without heart failure; F41.9 Anxiety disorder, unspecified; F32.9 Major depressive disorder, single episode, unspecified; R79.89 Other specified abnormal findings of blood chemistry; F17.210 Nicotine dependence, cigarettes, uncomplicated; E87.8 Other disorders of electrolyte and fluid balance, not elsewhere classified; Z89.611 Acquired absence of right leg above knee; Z88.8 Allergy status to other drugs, medicaments and biological substances; Z86.14 Personal history of Methicillin resistant Staphylococcus aureus infection; Z82.49 Family history of ischemic heart disease and other diseases of the circulatory system; Z83.79 Family history of other diseases of the digestive system; Z79.899 Other long term (current) drug therapy; Z68.30 Body mass index [BMI] 30.0-30.9, adult

== ENCOUNTER 2018-11-27 10:02 | Emergency (ER) | payer OTHER ==
[~2018-11-27] VITALS: Ht 177.8 cm; Wt 104.3 kg
--- NOTE | ~2018-11-27 | EKG ---
[place], [place] ELECTROCARDIOGRAM REPORT NAME: CADEN OLSEN UNIT #: [id number] ROOM: DOCTOR: EPIPHANY DRAFT REPORT BIRTHDATE: [birth year] [facility] Test Date: 2018-11-27 Test Time: 10:25:11 Pat Name: CADEN OLSEN Department: Room: Gender: Perinatal Nurse: : 1975 Requested By: PAIGE KEMP DNP Order Number: [id number] Reading MD: Laine Ray Measurements Intervals [place] Rate: 75 P: -4 SD: 159 QRS: -2 QRSD: 98 T: 2 QT: 395 QTc: 442 Interpretive Statements Sinus rhythm Abnormal R-wave progression, early transition Compared to ECG 11/07/2018 17:21:52 No significant changes Electronically Signed On 11-28-2018 12:24:27 PDT by Laine Ray CM:EKGRPT:ELECTROCARDIOGRAM REPORT 1025 1224 PAIGE KEMP DNP EPIPHANY DRAFT REPORT PAIGE KEMP DNP
[~2018-11-27 10:02] MED LIST changes: +ASPIRIN ADULT L81 M2 PO; +ATORVASTATIN CA80 M1 PO; +IBU400 M1 PO; +METOPROLOL SUCC25 M2 PO
[2018-11-27 10:48] LABS: BASO % 0.3 % (0.0-1.0); EOS # 0.4 10*3/uL (0.0-0.4); HEMATOCRIT 46.2 % (42.0-52.0); HEMOGLOBIN 15.5 g/dl (14.0-18.0); LYMPH # 2.1 10*3/uL (1.3-4.4); LYMPH % 24.6 % (27.0-41.0); MEAN CELL VOLUME 96.7 fl (80.0-94.0); MEAN CORPUSCULAR HGB 32.4 pg (27.0-31.0); MEAN CORPUSCULAR HGB CONC 33.5 g/dl (33.0-37.0); MONO # 0.6 10*3/uL (0.1-1.0); MONO % 6.6 % (3.0-9.0); NEUT # 5.4 10*3/uL (2.3-7.9); PLATELET COUNT AUTOMATED 234 10*3/uL (130-400); RED BLOOD COUNT 4.78 10*6/uL (4.50-5.90); RED CELL DISTRI WIDTH 12.8 % (0-14.5); WHITE BLOOD COUNT 8.6 10*3/uL (4.8-10.8)
[2018-11-27 10:58] LABS: ACT PARTIAL THROMBO TIME 26.6 SECONDS (20.0-32.1); INTERNATIONAL NORM RATIO 1.1 (2.0-3.5)
[2018-11-27 11:09] LABS: ALBUMIN 4.1 gm/dl (3.1-4.5); ALKALINE PHOSPHATASE 85 U/L (45-117); BUN 11 mg/dl (7-24); CHLORIDE 108 mmol/L (98-107); CREATININE 0.91 mg/dL (0.70-1.30); POTASSIUM 3.8 mmol/L (3.5-5.1); SGOT/AST 18 IU/L (3-35); SGPT/ALT 27 U/L (12-78); SODIUM 137 mmol/L (136-145); TOTAL PROTEIN 7.6 gm/dL (6.4-8.2)
[2018-11-27 11:21] LABS: TROPONIN I 0.053 ng/ml (<0.045)
== END 2018-11-27 14:58 | disposition short-term general hospital (02) ==
LOC: ED 10:02
PROVIDERS: Nurse Practitioner Family
DX: R51 Headache (principal); R11.2 Nausea with vomiting, unspecified; M54.2 Cervicalgia; R79.1 Abnormal coagulation profile; H53.8 Other visual disturbances; I10 Essential (primary) hypertension; F17.200 Nicotine dependence, unspecified, uncomplicated; Z88.6 Allergy status to analgesic agent; Z88.8 Allergy status to other drugs, medicaments and biological substances; Z79.899 Other long term (current) drug therapy; Z98.890 Other specified postprocedural states

== ENCOUNTER 2019-05-03 13:45 | Emergency (ER) | payer OTHER ==
[~2019-05-03] VITALS: Ht 177.8 cm; Wt 99.8 kg
[2019-05-03] MEDS ORDERED: ORPHENADRINE C100 M1 PO (16:28)
[2019-05-03] MEDS ORDERED: PREDNISONE10 MG PO (16:28)
== END 2019-05-03 16:44 | disposition home or self-care (01) ==
LOC: ED 13:45
DX: M25.511 Pain in right shoulder (principal); I10 Essential (primary) hypertension; K21.9 Gastro-esophageal reflux disease without esophagitis; E78.5 Hyperlipidemia, unspecified; E66.9 Obesity, unspecified; F17.210 Nicotine dependence, cigarettes, uncomplicated; Z88.8 Allergy status to other drugs, medicaments and biological substances; Z79.899 Other long term (current) drug therapy; Z88.6 Allergy status to analgesic agent